=== PATIENT | female | born 2000 | race Caucasian/White ===

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

== ENCOUNTER 2023-02-13 21:09 | Emergency (ER) | payer MEDICAID, SELFPAY ==
[2023-02-13 21:25] VITALS: BP 109/65; PULSE 91; RESP 14; TEMP 37.2; O2SAT 97; BMI 26.4
--- NOTE | 2023-02-13 21:32 | XR_ITS ---
PROCEDURE INFORMATION: Exam: XR Left Foot Exam date and time: 02/13/2023 9:33 PM Age: 22 years old Clinical indication: Injury or trauma; Other: Puncture; Foot; Left; Foreign body involvement not specified; Patient HX: Stepped on nail; Additional info: Puncture wound TECHNIQUE: Imaging protocol: Radiologic exam of the left foot. Views: 3 or more views. Total images: 3 COMPARISON: No relevant prior studies available. FINDINGS: Bones/joints: No acute fracture or joint dislocation. No concerning bone lesions or calcifications. Joint spaces are well maintained. Soft tissues: Unremarkable soft tissues. No radiopaque foreign body. IMPRESSION: Negative left foot.
--- NOTE | 2023-02-13 22:27 | PC.NURSE ---
provided crutches to patient
--- NOTE | 2023-02-13 22:32 | HMH.EDGENADL ---
Discharge Plan Disposition Patient Disposition: Home, Self-Care Condition: Good Prescriptions Prescriptions: New ciprofloxacin HCl 750 mg tablet 750 mg PO BID Qty: 20 0RF No Action norgestimate-ethinyl estradiol [Tri-Sprintec (28)] 0 tablet 1 tab PO DAILY Referrals Follow up/Referrals: Marah Awan APRN [Primary Care Provider] - See instructions Activity Restrictions/Add. Instructions Additional Instructions/Restrictions: You were evaluated in the emergency department today. 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 Follow-up with your primary care provider over the next week for wound reassessment. Keep the area elevated and ice to reduce swelling. Take Tylenol ibuprofen as needed for pain. Return to the emergency department for new or worsening symptoms, such as significant increase in pain, redness, warmth, or pus draining from the wound. Clinical Impressions Clinical Impression: Puncture wound of foot, left Qualifiers: Encounter type: initial encounter Qualified Code(s): S91.332A - Puncture wound without foreign body, left foot, initial encounter Stand Alone Forms Stand Alone Forms: Work/School Release Instructions Patient Instructions: DI for Puncture Wound Discharge ED Provider: Naima Flowers General Adult HPI General Chief complaint: Extremity Injury, Lower Stated complaint: AO 02/13, left foot pain Time Seen by Provider: 02/13/23 21:23 Mode of Arrival: Wheelchair Source of Information: Patient Limitations: No Limitations Description of Symptoms (Recalled from ER Triage Doc. 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 the insertion sight is on the sole of her L foot. pt is unsure if she is due for her tetnus vaccine, but is agreeable to receiving one. pt states the pain is 8/10 and tingling. History of Present Illness HPI narrative: This patient is a 22-year-old female with a history of amoxicillin allergy presenting to the emergency department for evaluation with concern for a puncture wound to the left foot. She reports she was walking in a site where her home is being renovated and stepped on a drea nail that was in a wooden board. The nail went through her shoe and into her left foot. She is unsure how deep it went. She complains of immediate pain. She reports that she has had initial tetanus vaccinations but is unsure when her last tetanus shot was. She did not take medications prior to arrival. This happened just prior to arrival. No other concerns noted at this time. Related Data Home Medications Medication Instructions Recorded Confirmed norgestimate-ethinyl estradiol 1 tab PO DAILY control 10/09/17 10/09/17 0.18 mg/0.215mg/0.25mg-35 mcg(28)tablet (Tri-Sprintec (28)) Previous Rx's Medication Instructions Recorded ciprofloxacin HCl 750 mg tablet 750 mg PO BID #20 tabs 02/13/23 Allergies Allergy/AdvReac Type Severity Reaction Status Date / Time amoxicillin Allergy Verified 02/13/23 21:31 [facility] Disclaimer: The information contained in this section may have been updated after the patient was seen, as this information can be updated by other users. Medical History Migraine Social History Smoking Status: Current every day smoker alcohol intake: never current occupational status: employed Travel in the last 8 weeks: None ROS Obtained: Yes All systems reviewed & no additional complaints except as documented Physical Exam General General appearance: alert and in no apparent distress Head Head exam: atraumatic and normocephalic Eye Eye exam: Present normal appearance, PERRL and EOMI ENT ENT exam: Present normal exam, normal oropharynx, mucous membranes moist and normal external ear exa
[2023-02-13 22:33] VITALS: BP 118/68; PULSE 90; RESP 16; TEMP 36.8; O2SAT 99
--- NOTE | 2023-02-13 22:34 | PC.NURSE ---
called report to Vani at [facility].
== END 2023-02-13 22:34 | disposition home or self-care (01) ==
PROVIDERS: Emergency Provider Emergency Medicine; PCP Nurse Practitioner
DX: S91.332A Puncture wound without foreign body, left foot, initial encounter (principal); W45.0XXA Nail entering through skin, initial encounter; F17.210 Nicotine dependence, cigarettes, uncomplicated
CPT/HCPCS: 73630; 90715; 96372; 99283

== ENCOUNTER 2023-10-15 08:00 | Outpatient (RCR) | payer MEDICAID, SELFPAY | END 2023-10-28 10:32 | disposition home or self-care (01) | LOC: PT 08:00 | PROVIDERS: Visit Provider Nurse Practitioner | DX: M54.50 Low back pain, unspecified (principal) | CPT/HCPCS: 97110; 97163 ==